=== PATIENT | female | born 1970 | race Caucasian/White ===

== ENCOUNTER 2023-07-20 11:26 | Emergency (ER) | payer BC | END 2023-07-20 12:42 | disposition left against medical advice (07) | LOC: ER 11:30 | DX: S01.81XA Laceration without foreign body of other part of head, initial encounter (principal); Z53.21 Procedure and treatment not carried out due to patient leaving prior to being seen by health care provider; X58.XXXA Exposure to other specified factors, initial encounter; Y93.89 Activity, other specified; Y92.89 Other specified places as the place of occurrence of the external cause; Y99.8 Other external cause status ==

== ENCOUNTER 2023-07-20 13:53 | Emergency (ER) | payer BC ==
[~2023-07-20] VITALS: Ht 177.8 cm; Wt 59.0 kg
[2023-07-20 14:23] VITALS: BP 134/68; TEMP 98.7; O2SAT 100
== END 2023-07-20 15:11 | disposition left against medical advice (07) ==
LOC: ER 13:54
DX: S09.90XA Unspecified injury of head, initial encounter (principal); X58.XXXA Exposure to other specified factors, initial encounter; Y93.89 Activity, other specified; Y92.89 Other specified places as the place of occurrence of the external cause; Y99.8 Other external cause status